=== PATIENT | female | born 1965 | race Caucasian/White ===

== ENCOUNTER 2025-02-07 19:37 | Emergency (ER) | payer OTHER, BC ==
[~2025-02-07] VITALS: Ht 157.5 cm; Wt 50.0 kg
[2025-02-07] MEDS ORDERED: AMITRIPTYLINE H50 MG PO (19:50)
[2025-02-07] MEDS ORDERED: THYROID MC (19:51)
[2025-02-07] MEDS ORDERED: MORPHINE SULFATE 4 MG/ML VIAL IV ONE (20:00)
[2025-02-07] MEDS ORDERED: HYDROmorphone HCL 1 MG/ML SYR IV PRN (20:30)
[2025-02-07 20:55] VITALS: BP 122/68
[2025-02-07] MEDS ORDERED: ONDANSETRON ODT8 MG PO (20:59)
[2025-02-07] MEDS ORDERED: PERCOCET 5-3251 EACH PO (20:59)
[2025-02-07] MEDS ORDERED: ONDANSETRON 4 MG HOME.PACK SL ONE (21:00)
[2025-02-07] MEDS ORDERED: OXYCODONE/ACETAMINOPHEN 1 TAB HOME.PACK PO ONE (21:00)
== END 2025-02-07 21:15 | disposition home or self-care (01) ==
LOC: ED 19:37
DX: S92.321A Displaced fracture of second metatarsal bone, right foot, initial encounter for closed fracture (principal); S92.331A Displaced fracture of third metatarsal bone, right foot, initial encounter for closed fracture; S92.341A Displaced fracture of fourth metatarsal bone, right foot, initial encounter for closed fracture; S92.231A Displaced fracture of intermediate cuneiform of right foot, initial encounter for closed fracture; S92.221A Displaced fracture of lateral cuneiform of right foot, initial encounter for closed fracture; S92.241A Displaced fracture of medial cuneiform of right foot, initial encounter for closed fracture; S92.024A Nondisplaced fracture of anterior process of right calcaneus, initial encounter for closed fracture; E03.9 Hypothyroidism, unspecified; Z79.890 Hormone replacement therapy; Z79.899 Other long term (current) drug therapy; W14.XXXA Fall from tree, initial encounter
CPT/HCPCS: 73630; 73700; A9270; J1171; J2270; J2405